=== PATIENT | female | born 1995 | race Caucasian/White ===

== ENCOUNTER 2024-12-28 03:37 | Emergency (ER) | payer MEDICAID ==
[~2024-12-28] VITALS: Ht 152.4 cm; Wt 59.1 kg
[2024-12-28 03:41] VITALS: BP 117/77; PULSE 103; RESP 16; TEMP 98.1; O2SAT 100
== END 2024-12-28 05:43 | disposition left against medical advice (07) ==
LOC: ER 03:39
DX: S90.822A Blister (nonthermal), left foot, initial encounter (principal); Z53.21 Procedure and treatment not carried out due to patient leaving prior to being seen by health care provider; X08.8XXA Exposure to other specified smoke, fire and flames, initial encounter; Y93.89 Activity, other specified; Y92.89 Other specified places as the place of occurrence of the external cause; Y99.8 Other external cause status